=== PATIENT | female | born 1980 | race American Indian/Alaskan Native ===

== ENCOUNTER 2021-02-11 20:06 | Emergency (ER) | payer SELFPAY ==
[2021-02-11] MEDS ORDERED: ASPIRIN 325 MG TAB PO ONE (21:49)
--- NOTE | 2021-02-12 14:10 | Electrocardiograph Report ---
[facility] Test Date: 2021-02-11 Test Time: 20:33:31 Pat Name: CAMERON BOSS Department: Room: Gender: F Visual Artist: SUMMER : 1980 Requested By: ELIZABETH SNIDER Order Number: [id number] Reading MD: Henrry Casillas Measurements Intervals Mohawk Rate: 79 P: 65 NE: 205 QRS: 26 QRSD: 87 T: 11 QT: 386 QTc: 442 Interpretive Statements Sinus rhythm Borderline prolonged NE interval Probable left atrial enlargement No previous ECG available for comparison Electronically Signed On 02-12-2021 14:10:31 EDT by Henrry Casillas
== END 2021-02-11 20:44 | disposition left against medical advice (07) ==
LOC: EDBD → ED 20:06
DX: R07.9 Chest pain, unspecified (principal); Z53.21 Procedure and treatment not carried out due to patient leaving prior to being seen by health care provider
CPT/HCPCS: 93005

== ENCOUNTER 2021-04-16 11:15 | Emergency (ER) | payer SELFPAY ==
--- NOTE | 2021-04-16 11:44 | Emergency Department Report ---
ED General Adult HPI - General Chief complaint: Extremity Problem,Nontraumatic Stated complaint: LT HAND NUMBNESS Time Seen by Provider: 04/16/21 11:30 Source: patient Mode of arrival: Ambulatory Limitations: No Limitations - History of Present Illness Initial comments: 41-year-old -[place] female patient presents with complaints of worsening right wrist pain and numbness x2 weeks. She states she woke from her sleep last night and her hand was completely numb. She does admit to laying on her hands while sleeping. She also states history of bilateral carpal tunnel syndrome, however she has never been evaluated by event specialist. Patient states her pain has significantly improved with ibuprofen 800 at home. No current numbness per patient or difficulty moving her hand or fingers. She also denies any trauma to the hand. She reports her pain has been ongoing since starting to work at [employer] and frequently lifting heavy boxes - Related Data Previous Rx's Medication Instructions Recorded Last Taken Type Ibuprofen [Motrin] 800 mg PO Q8HR PRN #20 tablet 01/08/20 Unknown Rx Naproxen 500 mg PO BID PRN #20 tablet 04/16/21 Unknown Rx predniSONE [Deltasone] 20 mg PO BID 3 Days #6 tab 04/16/21 Unknown Rx Allergies Allergy/AdvReac Type Severity Reaction Status Date / Time No Known Allergies Allergy Unverified 04/16/21 11:21 ED Review of Systems ROS: Stated complaint: LT HAND NUMBNESS Other details as noted in HPI Constitutional: denies: diaphoresis, fever, malaise Musculoskeletal: denies: joint swelling, arthralgia Skin: denies: change in color Neurological: numbness, paresthesias. denies: headache, weakness ED Past Medical Hx - Surgical History Additional Surgical History: Hysterectomy - Social History Smoking Status: Current Some Day Smoker Substance Use Type: Alcohol - Medications Home Medications: Home Medications Medication Instructions Recorded Confirmed Last Taken Type Ibuprofen [Motrin] 800 mg PO Q8HR PRN #20 tablet 01/08/20 Unknown Rx Naproxen 500 mg PO BID PRN #20 tablet 04/16/21 Unknown Rx predniSONE [Deltasone] 20 mg PO BID 3 Days #6 tab 04/16/21 Unknown Rx ED Physical Exam - General Limitations: No Limitations General appearance: alert, in no apparent distress, obese - Head Head exam: Present: atraumatic, normocephalic - Eye Eye exam: Present: normal appearance. Absent: scleral icterus - Respiratory Respiratory exam: Absent: respiratory distress - Cardiovascular Cardiovascular Exam: Present: regular rate - Extremities Exam Extremities exam: Present: full ROM - Expanded Upper Extremity Exam Right Forearm Wrist exam: Present: full ROM, other (+Phalen's test). Absent: tenderness, swelling, abrasion, laceration, ecchymosis, deformity, crepidus, dislocation, erythema Vascular: Present: vascular compromise, normal capillary refill. Absent: pulse deficit radial art, pulse deficit ulnar art - Neurological Exam Neurological exam: Present: alert, oriented X3 - Psychiatric Psychiatric exam: Present: normal affect, normal mood - Skin Skin exam: Present: warm, dry, intact, normal color. Absent: rash ED Medical Decision Making - Medical Decision Making 41-year-old -[place] female patient presents with complaints of worsening right wrist pain and numbness x2 weeks. She states she woke from her sleep last night and her hand was completely numb. She does admit to laying on her hands while sleeping. She also states history of bilateral carpal tunnel syndrome, however she has never been evaluated by event specialist. Patient states her pain has significantly improved with ibuprofen 800 at home. No current numbness per patient or difficulty moving her hand or fingers. She also denies any trauma to the hand. She reports her pain has been ongoing since starting to work at [employer] and frequently lifting heavy boxes History and exam are consistent with carpal tunnel syndrome. Discussed icing, wrist immobilization, and importance of follow-up with orthopedics for further evaluation and treatment. She is well-appearing stable for discharge home. Strict return precautions were discussed in detail with patient who verbalizes understanding peer Critical care attestation.: If time is entered above; I have spent that time in minutes in the direct care of this critically ill patient, excluding procedure time. ED Disposition Clinical Impression: Right hand paresthesia Disposition: 01 HOME / SELF CARE / HOMELESS Is pt being admited?: No Condition: Stable Instructions: Carpal Tunnel Syndrome Prescriptions: predniSONE [Deltasone] 20 mg PO BID 3 Days #6 tab Naproxen 500 mg PO BID PRN #20 tablet PRN Reason: pain Referrals: [facility] [Provider Group] - 3-5 Days Forms: Work/School Release Form(ED)
[2021-04-16 12:20] VITALS: BP 139/88
== END 2021-04-16 12:22 | disposition home or self-care (01) ==
LOC: ED 11:15
DX: R20.2 Paresthesia of skin (principal); M25.531 Pain in right wrist; F17.200 Nicotine dependence, unspecified, uncomplicated; Z90.710 Acquired absence of both cervix and uterus; Z72.89 Other problems related to lifestyle; Z79.899 Other long term (current) drug therapy
CPT/HCPCS: 99281

== ENCOUNTER 2022-01-21 11:37 | Emergency (ER) | payer MEDICAID ==
[2022-01-21] MEDS ORDERED: hydrALAZINE 25 MG TAB PO ONE (13:15)
[2022-01-21] MEDS ORDERED: BUTALB/ACETAMINOPHEN/CAFFEINE TAB PO ONE (13:15)
--- NOTE | 2022-01-21 14:15 | Vascular Lab Report ---
DUPLEX DOPPLER LOWER EXTREMITY VEINS, BILATERAL INDICATION / CLINICAL INFORMATION: Bilateral leg pain. TECHNIQUE: Duplex doppler imaging was performed through the veins of both lower extremities using venous kevin john and other maneuvers. COMPARISON: None available. FINDINGS: RIGHT COMMON FEMORAL VEIN: Negative. RIGHT FEMORAL VEIN: Negative. RIGHT POPLITEAL VEIN: Negative. RIGHT CALF VEINS: Negative. LEFT COMMON FEMORAL VEIN: Negative. LEFT FEMORAL VEIN: Negative. LEFT POPLITEAL VEIN: Negative. LEFT CALF VEINS: Negative. ADDITIONAL FINDINGS: None. IMPRESSION: 1. No sonographic evidence for DVT in either lower extremity. Signer Name: Peter Casas MD Signed: 01/21/2022 2:11 PM Workstation Name: [id number]
--- NOTE | 2022-01-21 14:31 | Emergency Department Report ---
ED General Adult HPI - General Chief complaint: High BP Stated complaint: HEADACHE/SWOLLEN LEGS AND FEET Source: patient Mode of arrival: Ambulatory Limitations: No Limitations - History of Present Illness Initial comments: Patient is a 41-year-old -Spanish female with a history of morbid obesity who presents to the ED with complaint of persistently elevated blood pressure for the last 2 days. Patient also complains of persistent intermittent bilateral lower extremity pain and swelling with a headache. Patient states that her job entails physical activity and being on her feet. Patient denies dizziness, syncope, chest pain, shortness of breath, traumatic injury, change in vision, nausea and vomiting, lightheadedness, cough, abdominal pain, diarrhea, traumatic injury or heavy lifting. MD Complaint: Uncontrolled hypertension; bilateral lower extremity pain and swelling -: days(s) (2) Location: head, lower extremity (Bilateral lower extremities) Radiation: non-radiation Severity scale (0 -10): 3 Quality: aching, dull Consistency: intermittent Improves with: none Worsens with: none Associated Symptoms: denies other symptoms, headaches. denies: confusion, chest pain, cough, diaphoresis, fever/chills, loss of appetite, malaise, nausea/vomiting, rash, seizure, shortness of breath, syncope, weakness, other Treatments Prior to Arrival: none - Related Data Previous Rx's Medication Instructions Recorded Last Taken Type Naproxen 500 mg PO BID PRN #20 tablet 04/16/21 Unknown Rx Butalb/Acetamin/Caff 50-325-40 1 - 2 tab PO Q6HR PRN #12 tab 01/21/22 Unknown Rx [Fioricet 50-325-40] Ibuprofen [Motrin 800 MG tab] 800 mg PO Q8HR PRN #30 tablet 01/21/22 Unknown Rx Lisinopril/Hydrochlorothiazide 1 tab PO QDAY #30 tab 01/21/22 Unknown Rx [Zestoretic 20-12.5 mg] predniSONE [Deltasone] 20 mg PO DAILY #10 tab 01/21/22 Unknown Rx Allergies Allergy/AdvReac Type Severity Reaction Status Date / Time No Known Allergies Allergy Verified 01/21/22 11:48 ED Review of Systems ROS: Stated complaint: HEADACHE/SWOLLEN LEGS AND FEET Other details as noted in HPI Constitutional: denies: chills, fever Eyes: denies: eye pain, eye discharge, vision change ENT: denies: ear pain, throat pain Respiratory: denies: cough, shortness of breath, wheezing Cardiovascular: denies: chest pain, palpitations Endocrine: no symptoms reported Gastrointestinal: denies: abdominal pain, nausea, diarrhea Genitourinary: denies: urgency, dysuria, discharge Musculoskeletal: denies: back pain, joint swelling, arthralgia Skin: denies: rash, lesions Neurological: headache. denies: weakness, paresthesias Psychiatric: denies: anxiety, depression Hematological/Lymphatic: denies: easy bleeding, easy bruising ED Past Medical Hx - Surgical History Additional Surgical History: Hysterectomy - Social History Smoking Status: Current Some Day Smoker Substance Use Type: Alcohol - Medications Home Medications: Home Medications Medication Instructions Recorded Confirmed Last Taken Type Naproxen 500 mg PO BID PRN #20 tablet 04/16/21 Unknown Rx Butalb/Acetamin/Caff 50-325-40 1 - 2 tab PO Q6HR PRN #12 tab 01/21/22 Unknown Rx [Fioricet 50-325-40] Ibuprofen [Motrin 800 MG tab] 800 mg PO Q8HR PRN #30 tablet 01/21/22 Unknown Rx Lisinopril/Hydrochlorothiazide 1 tab PO QDAY #30 tab 01/21/22 Unknown Rx [Zestoretic 20-12.5 mg] predniSONE [Deltasone] 20 mg PO DAILY #10 tab 01/21/22 Unknown Rx ED Physical Exam - General Limitations: No Limitations General appearance: alert, in no apparent distress - Head Head exam: Present: atraumatic, normocephalic, normal inspection - Eye Eye exam: Present: normal appearance, PERRL, EOMI Pupils: Present: normal accommodation - ENT ENT exam: Present: normal exam, normal orophraynx, mucous membranes moist, TM's normal bilaterally, normal external ear exam - Neck Neck exam: Present: normal inspection, full ROM. Absent: tenderness - Respiratory Respiratory exam: Present: normal lung sounds bilaterally. Absent: respiratory distress, wheezes, rales, stridor, chest wall tenderness, accessory muscle use, prolonged expiratory - Cardiovascular Cardiovascular Exam: Present: regular rate, normal rhythm, normal heart sounds. Absent: systolic murmur, diastolic murmur, rubs, gallop - GI/Abdominal GI/Abdominal exam: Present: soft, normal bowel sounds. Absent: tenderness, guarding, rebound, hyperactive bowel sounds, hypoactive bowel sounds, mass, pulsatile mass - Extremities Exam Extremities exam: Present: normal inspection, full ROM, tenderness (Palpable mild bilateral ankle and foot tenderness with mild swelling), normal capillary refill, joint swelling (Bilateral ankles). Absent: pedal edema, calf tenderness - Back Exam Back exam: Present: normal inspection, full ROM. Absent: tenderness, CVA tenderness (R), CVA tenderness (L), vertebral tenderness - Neurological Exam Neurological exam: Present: alert, oriented X3, CN II-XII intact, normal gait, reflexes normal - Psychiatric Psychiatric exam: Present: normal affect, normal mood - Skin Skin exam: Present: warm, dry, intact, normal color. Absent: rash ED Course Vital Signs 01/21/22 11:41 Temperature 97 F L Pulse Rate 88 Respiratory 18 Rate Blood Pressure 179/75 [Right] O2 Sat by Pulse 97 Oximetry ED Medical Decision Making - Radiology Data Radiology results: report reviewed, [place] [address] Vascular Lab Report Signed Patient: CAMERON BOSS MR#: [id number] : 1980 Acct:[id number] Age/Sex: 41 / F ADM Date: 01/21/22 Loc: ED Attending Dr: Ordering Physician: MATT SANTIAGO Date of Service: 01/21/22 Procedure(s): VL venous duplex LE BILAT Accession Number(s): [id number] cc: MATT SANTIAGO DUPLEX DOPPLER LOWER EXTREMITY VEINS, BILATERAL INDICATION / CLINICAL INFORMATION: Bilateral leg pain. TECHNIQUE: Duplex doppler imaging was performed through the veins of both lower extremities using venous compression and other maneuvers. COMPARISON: None available. FINDINGS: RIGHT COMMON FEMORAL VEIN: Negative. RIGHT FEMORAL VEIN: Negative. RIGHT POPLITEAL VEIN: Negative. RIGHT CALF VEINS: Negative. LEFT COMMON FEMORAL VEIN: Negative. LEFT FEMORAL VEIN: Negative. LEFT POPLITEAL VEIN: Negative. LEFT CALF VEINS: Negative. ADDITIONAL FINDINGS: None. IMPRESSION: 1. No sonographic evidence for DVT in either lower extremity. Signer Name: Peter Casas MD Signed: 01/21/2022 2:11 PM Workstation Name: [id number] Transcribed By: FABRICE Dictated By: Peter Casas MD Electronically Authenticated By: Peter Casas MD Signed Date/Time: 01/21/221410 DD/ 10 TD/TT: - Medical Decision Making This is a 41-year-old -Spanish female with a history of morbid obesity who presents to the ED with complaint of persistently elevated blood pressure for the last 2 days. Patient also complains of persistent intermittent bilateral lower extremity pain and swelling with a headache. Patient states that her job entails physical activity and being on her feet. In the ED, patient is alert and oriented x3 and is not in any distress but is hypertensive in triage. Bilateral lower extremity Doppler ultrasound showed no sonographic evidence of DVT. Patient was discharged home on medication and advised to follow-up with her primary care physician in 7 to 10 days for reevaluation. Patient is advised to return to the ED immediately if symptoms get worse. - Differential Diagnosis hypertension; tension headache, muscle strain; DVT Critical care attestation.: If time is entered above; I have spent that time in minutes in the direct care of this critically ill patient, excluding procedure time. ED Disposition Clinical Impression: Uncontrolled stage 2 hypertension Muscle strain of lower extremity Qualifiers: Encounter type: initial encounter Laterality: unspecified laterality Qualified Code(s): S86.919A - Strain of unspecified muscle(s) and tendon(s) at lower leg level, unspecified leg, initial encounter Acute tension headache Qualifiers: Intractability: not intractable Qualified Code(s): G44.209 - Tension-type headache, unspecified, not intractable Disposition: 01 HOME / SELF CARE / HOMELESS Is pt being admited?: No Does the pt Need Aspirin: No Condition: Stable Instructions: Hypertension (ED), Muscle Strain, [id number], Tension Headache, Adult, [id number], Hypertension, Adult, [id number] Additional Instructions: Take medication with food doing plenty fluids and follow-up with your primary care physician in 7 to 10 days for reevaluation. Return to the ED immediately if symptoms get worse. Prescriptions: predniSONE [Deltasone] 20 mg PO DAILY #10 tab Butalb/Acetamin/Caff 50-325-40 [Fioricet 50-325-40] 1 - 2 tab PO Q6HR PRN #12 tab PRN Reason: Headache Ibuprofen [Motrin 800 MG tab] 800 mg PO Q8HR PRN #30 tablet PRN Reason: Pain , Severe (7-10) Lisinopril/Hydrochlorothiazide [Zestoretic 20-12.5 mg] 1 tab PO QDAY #30 tab Referrals: [facility] [Provider Group] - 7-10 days Time of Disposition: 14:31 Print Language: ZAMBIAN
[2022-01-21 14:51] VITALS: BP 144/80
== END 2022-01-21 14:51 | disposition home or self-care (01) ==
LOC: ED 11:37
DX: S86.919A Strain of unspecified muscle(s) and tendon(s) at lower leg level, unspecified leg, initial encounter (principal); I10 Essential (primary) hypertension; G44.209 Tension-type headache, unspecified, not intractable; F17.200 Nicotine dependence, unspecified, uncomplicated; X58.XXXA Exposure to other specified factors, initial encounter; Y93.89 Activity, other specified; Y92.89 Other specified places as the place of occurrence of the external cause; Y99.8 Other external cause status
CPT/HCPCS: 93970; 99283